=== PATIENT | male | born 1975 | race Caucasian/White ===

== ENCOUNTER 2018-11-13 13:42 | Emergency (ER) | payer MEDICAID, SELFPAY ==
[2018-11-13 13:48] VITALS: BP 151/81; PULSE 77; RESP 16; TEMP 36.7; O2SAT 98; BMI 31.3
[2018-11-13] MEDS: 0.9% Normal Saline 1,000 ML 250 ML IV (14:16)
[2018-11-13] MEDS: Ketorolac 30 MG/ML Syringe IV (14:16)
[2018-11-13] MEDS: morphine 8 MG/ML Syringe IV (14:16)
[2018-11-13] MEDS: Ondansetron 4 MG/2 ML Vial IV (14:16)
--- NOTE | 2018-11-13 14:20 | CT_ITS ---
STUDY: CT ABDOMEN AND PELVIS WITHOUT CONTRAST REASON FOR EXAM: Male, 43 years old. Right sided pain RADIATION DOSAGE (If Supplied By Facility): CTDIvol = ( 12.97 ) mGy, DLP = ( 622 ) mGycm TECHNIQUE: Transaxial images were obtained from the dome of the diaphragm to the symphysis pubis without oral contrast, and without intravenous contrast. Sagittal and coronal images were reconstructed. Individualized dose optimization techniques were used for this CT. COMPARISON: None. FINDINGS: Evaluation of the abdominal viscera is limited in the absence of intravenous contrast. The visualized lung bases are clear. The visualized portions of the heart and pericardium are within normal limits. There are no calcified gallstones present. The liver demonstrates an unremarkable unenhanced appearance. The spleen is normal in size. The pancreas demonstrates an unremarkable unenhanced appearance. The adrenal glands are within normal limits. There are bilateral subcentimeter nonobstructing renal collecting system stones. There is a 6 mm stone in the right proximal ureter with mild right hydroureteronephrosis. There is a 7 mm stone in the left proximal ureter with mild left hydroureteronephrosis. Normal visualized stomach. There is no bowel obstruction or inflammation. The appendix is visualized and appears normal. The aorta is normal in caliber. There is no abdominal or pelvic free air, free fluid, fluid collection or lymphadenopathy. There are no destructive osseous lesions. CT/Abdomen/Pelvis without Cont IMPRESSION: 6 mm stone in the right proximal ureter with mild right hydroureteronephrosis. 7 mm stone in the left proximal ureter with mild left hydroureteronephrosis. Bilateral subcentimeter nonobstructing renal collecting system stones. No bowel obstruction or inflammation. Normal appendix. Electronically Signed: Jeffery Justin, at 15:51 EST Tel , Service support ,
--- NOTE | 2018-11-13 14:24 | ED.DCSUM_ITS ---
- ER Visit Summary Date of Service: 11/13/18 Chief Complaint: [] Flank pain since Wednesday History of Present Illness: The patient is a 43 M [] been having intermittent flank pain since Wednesday primarily left-sided then for the last day or 2 right- sided it migrates from left to right he has had no fever no cough normal bowel bladder habits other than to report diarrhea he has been eating and drinking without difficulty, he has history of kidney stones and believes this could be related to that. He currently is having pain to the right flank, no nausea or vomiting or fever no trauma he does have behavioral health disorders and anxiety for which she is taking medications and are stable Physical Examination: [] General, no distress resting comfortably signs are within normal range HEENT is generally unremarkable The neck is supple no adenopathy Cardiovascular, regular rate and rhythm Lungs, clear bilateral Abdomen, soft nontender to his right flank there is minimal CVAT there is no pain over McBurney's right lower quadrant he denies any pain or symptoms or dysuria Extremities, no clubbing cyanosis or edema Neurologic, awake alert answering questions appropriately moving all 4 extremities Test Results: [] Emergency Department Course and Treatment: [] IV screening labs CT flank His labs are generally unremarkable white count 15, his creatinine is 1.12, his flank CT shows normal appendix and it shows right and left about 6 mm ureteral stones are causing some hydronephrosis of bilateral obstructing ureteral stones, otherwise it T CT was unremarkable patient did void clean yellow urine here I discussed all the above with him I explained the concept of acute bilateral obstruction that could lead to severe pain etc. infection, recommended admission, he understood all that could he could not be admitted for a variety of reasons but would follow-up with Dr. Tracy [facility] tomorrow he does have Percocet that he uses for his chronic pain he will be given an additional 5 tablets will follow up with tomorrow return for change in symptoms Treatment Plan: [] Disposition: [] Home stable Impression: [] Right and left, bilateral, approximately 6 mm proximal obstructing ureteral kidney stones This note was generated with [employer] software. It may contain incorrect words, spelling, and punctuation that were not noted in review of the chart prior to signing
[2018-11-13 15:11] LABS: Absolute Lymphocyte Count 0.97 X10^3/ul (0.83-4.51); Absolute Neutrophil Count 12.6 X10^3/uL (2.0-7.7); Basophil# 0.02 X10^3/uL; Basophil% 0.1 % (0-1); Eosinophil# 0.04 X10^3/uL; Eosinophils% 0.3 % (0-5); Hematocrit 43.8 % (40-54); Hemoglobin 14.7 g/dl (13.0-16.5); Lymphocyte # 0.97 X10^3/ul (4.0); Lymphocyte % 6.4 % (19-41); Mean Corp Hgb Conc 33.6 g/gl (32-36); Mean Corpuscular Hgb 32.2 pg (27.0-32.0); Mean Corpuscular Volume 96.1 fL (80-94); Mean Platelet Vol. 10.7 fl (6.2-12.0); Monocyte# 1.34 X10^3/uL; Monocyte% 8.9 % (0-10); Neutrophil # 12.61 X10^3/uL (2.7-7.7); Neutrophil % 83.9 % (47-70); Platelet Count 216 K/mm3 (150-450); RBC Distribution Width CV 12.3 % (11.6-14.6); RBC Distribution Width SD 42.5 fl (35.1-43.9); Red Blood Count 4.56 M/mm3 (4.6-6.2)
[2018-11-13 15:20] LABS: POSITIVE COUNT NO; POSITIVE DIFFERENTIAL NO; POSITIVE MORPHOLOGY NO
[2018-11-13 15:24] LABS: Anion Gap 5 (5-15); BUN 21 mg/dL (7-18); BUN/Creat Ratio 18.8 RATIO (10-20); Calcium,Total 7.9 mg/dL (8.5-10.1); Chloride 111 mmol/L (98-107); Creatinine, Serum 1.12 mg/dL (0.70-1.30); EST Glomerular Filtration Rate 76 mL/min (>60); Est Glom Filt Rate - Afr Amer 92 mL/min (>60); Estimated Creatinine Clearance 79.51 ml/min; Glucose 96 mg/dL (74-106); Potassium 4.9 mmol/L (3.5-5.1); Sodium Level 136 mmol/L (136-145)
[2018-11-13 16:02] VITALS: BP 112/93; PULSE 69; RESP 16; O2SAT 98
[2018-11-13 16:06] LABS: Bacteria 0 SEEN /hpf (None Seen); Color, Urine Yellow (Yellow); Glucose, Dipstick Normal (Normal); Ketone-Dipstick Negative (Negative); Leukocyte Esterase-Dipstick Negative /ul (Negative); Mucous, Urine 0 SEEN /hpf (<or=2+); Nitrite-Dipstick Negative (Negative); Occult Blood-Urine 50 /ul (Negative); Protein-Dipstick Negative (Negative); Red Blood Cells-Urine 0 SEEN /hpf (0-5); Squamous Epithelial Cells - UA 0 SEEN /hpf (0-5); Urine Bilirubin Dipstick Negative (Negative); Urine Clarity Clear (Clear); Urine Urobilinogen Normal (Normal); Urine pH 6.5 (5.0 - 8.0); White Blood Cells 0 SEEN /hpf (0-5)
--- NOTE | 2018-11-13 16:18 | ED.DEP ---
ED Disposition - Plan for ED Patient: Instructions: ED Stone Renal W Colic Prescriptions: Oxycodone HCl/Acetaminophen [Percocet 5/325] 1 tab PO Q6H PRN PRN 3 Days #7 tab PRN Reason: Pain Referrals: Care Physician,No Primary [Primary Care Provider] - Braeden Hook MD [STAFF PHYSICIAN] -
[2018-11-13] MEDS: HYDROcodone Bitartrate/Apap 5/325 Tablet PO (16:34)
== END 2018-11-13 16:40 | disposition home or self-care (01) ==
PROVIDERS: Emergency Provider Emergency Medicine
DX: N13.2 Hydronephrosis with renal and ureteral calculous obstruction (principal); Z87.442 Personal history of urinary calculi
CPT/HCPCS: 74176; 80048; 81001; 85025; 96361; 96374; 96375; 99283; A4216; J2405

== ENCOUNTER 2018-11-14 11:33 | Emergency (ER) | payer MEDICAID, SELFPAY ==
[2018-11-13 13:48] VITALS: BMI 31.3
[2018-11-14 11:34] VITALS: BP 143/80; PULSE 80; RESP 15; TEMP 36.9; O2SAT 98; BMI 31.1
[2018-11-14 12:25] VITALS: BP 138/74; PULSE 75; RESP 14; O2SAT 98
--- NOTE | 2018-11-14 12:37 | ED.VISSUMM ---
- ER Visit Summary Date of Service: 11/14/18 Chief Complaint: Flank pain History of Present Illness: The patient is a 43 M history no kidney stones and back pain. No prior surgeries. Patient was seen in the ER yesterday diagnosed with bilateral ureteral calculi with hydro-. He had a 6 mm stone on the right in the proximal ureter and a 7 mm stone in the left in the proximal ureter. He had bilateral multiple renal stones. At that time was discussed admission but he preferred to be discharged home. He is back today because he can control his pain. He denies any fever. His labs from yesterday his CBC chemistry and urine were unremarkable. Physical Examination: Middle-aged male plan flank pain. Vital signs are stable afebrile. He does not look septic or toxic. HEENT exam unremarkable. Neck nontender. Lungs there to auscultation bilaterally. Heart regular rhythm no murmur. Abdomen is soft and nontender. Extremities moves all 4. Neurologically is awake alert with no focal deficits. Back is nontender. Test Results: BMP today's creatinine 1 from 1.1 yesterday to 1.47 today. Otherwise I reviewed his labs from yesterday his CBC and urine were unremarkable. The CT flank study done yesterday showed right proximal ureteral stone is 6 mm and a left proximal ureteral stone 7 mm both with hydronephrosis and bilateral multiple renal stones. Emergency Department Course and Treatment: Pt treated with a liter of fluid, IV Dilaudid, IV Toradol and IV Zofran. Patient is doing better after his IV medications on repeat exam at 1350. I am going to speak to the hospitalist about possible admission here versus transfer. Currently we do not have any urology coverage today and tomorrow at [facility] so the hospitalist did not feel comfortable admitting the patient here. I discussed this with the patient he wanted me to try transfer to [place] who currently does not have any beds. I then spoke to [facility] and we are waiting to hear back from them. The patient will be treated with a second dose of Dilaudid. Treatment Plan: For intractable flank pain due to bilateral ureteral calculi ureteral calculi Disposition: [] Impression: Acute bilateral flank pain secondary to a 6 mm proximal ureteral stone on the right and a 7 mm proximal ureteral stone on the left with hydronephrosis Intractable pain This note was generated with Dragon dictation software. It may contain incorrect words, spelling, and punctuation that were not noted in review of the chart prior to signing ED Disposition - Plan for ED Patient: Referrals: [facility],Out of [Primary Care Provider] -
[2018-11-14] MEDS: HYDROmorphone 1 MG/ML Syringe IV ×2 (12:48→17:30)
[2018-11-14] MEDS: Ketorolac 30 MG/ML Syringe IV (12:48)
[2018-11-14] MEDS: 0.9% Normal Saline 1,000 ML 1000 ML IV (12:48)
[2018-11-14] MEDS: Ondansetron 4 MG/2 ML Vial IV (12:48)
[2018-11-14 13:15] LABS: Anion Gap 4 (5-15); BUN 20 mg/dL (7-18); BUN/Creat Ratio 13.6 RATIO (10-20); Calcium,Total 8.4 mg/dL (8.5-10.1); Chloride 109 mmol/L (98-107); Creatinine, Serum 1.47 mg/dL (0.70-1.30); EST Glomerular Filtration Rate 55 mL/min (>60); Est Glom Filt Rate - Afr Amer 67 mL/min (>60); Estimated Creatinine Clearance 60.58 ml/min; Glucose 84 mg/dL (74-106); Potassium 3.9 mmol/L (3.5-5.1); Sodium Level 138 mmol/L (136-145)
--- NOTE | 2018-11-14 15:30 | CASEMGMT ---
According to [facility] Community Plan Website, patient may be transferred to [facility], [facility]. Indira Ratliff RNCM
[2018-11-14 16:36] VITALS: BP 140/74; PULSE 80; RESP 14; O2SAT 98
--- NOTE | 2018-11-14 17:44 | ED.RN ---
NURSE TO NURSE REPORT CALLED TO [facility] TO KIYA PUGA.
== END 2018-11-14 19:56 | disposition short-term general hospital (02) ==
PROVIDERS: Emergency Provider Emergency Medicine
DX: N13.2 Hydronephrosis with renal and ureteral calculous obstruction (principal); Z72.0 Tobacco use
CPT/HCPCS: 80048; 96361; 96374; 96375; 96376; 99284; J7030; A4216; J2405